=== PATIENT | female | born 1975 | race Caucasian/White ===

== ENCOUNTER 2020-11-27 05:44 | Day surgery (SDC) | payer OTHER ==
[2020-11-27] MEDS ORDERED: Nozin Nasal Sanitizer NASBOTH ONE (06:00)
[2020-11-27] MEDS ORDERED: Lactated Ringers 1,000 ML IV SCH (06:45)
[2020-11-27] MEDS ORDERED: Bupivacaine 0.5% 30 ML SDV ONE (06:59)
[2020-11-27] MEDS ORDERED: ceFAZolin 1 GM in Premix Bag 1 BAG IV ONE (07:00)
[2020-11-27] MEDS ORDERED: Scopolamine 1.5 MG Transdermal Patch ONE (07:20)
[2020-11-27] MEDS ORDERED: fentaNYL 100 MCG/2 ML SDV ONE ×3 (07:23→09:51)
[2020-11-27] MEDS ORDERED: Propofol 200 MG/20 ML SDV ONE (07:23)
[2020-11-27] MEDS ORDERED: Midazolam 1 MG/ML 2 ML SDV ONE (07:23)
[2020-11-27] MEDS ORDERED: Ondansetron 4 MG/2 ML SDV ONE (07:24)
[2020-11-27] MEDS ORDERED: Dexamethasone 4 MG/ML SDV ONE (07:24)
[2020-11-27] MEDS ORDERED: Naloxone 0.4 MG/ML SDV ONE (08:30)
[2020-11-27] MEDS ORDERED: Lactated Ringers 1,000 ML ONE (08:31)
[2020-11-27] MEDS ORDERED: Acetaminophen/HYDROcodone 325-5 MG Tab PO ONE (09:45)
[2020-11-27 10:17] VITALS: BP 98/55; PULSE 65
--- NOTE | 2020-12-02 10:19 | ANES ---
DATE OF SERVICE: 11/27/2020 ADDENDUM: I did give Mrs. Varela 2 mg of Versed upon arrival to the operating room, that was not documented in my chart. Bartolo Adam CRNA /[id number]
--- NOTE | 2020-12-04 22:26 | OR ---
DATE OF PROCEDURE: 11/27/2020 SURGEON: Danielito Garcia MD PREOPERATIVE DIAGNOSES: 1. Medial meniscus tear, right knee. 2. Chondromalacia, right knee. POSTOPERATIVE DIAGNOSES: 1. Minor tear of posterior root, medial meniscus, right knee. 2. Chondromalacia, patella and medial femoral condyle. PROCEDURES: 1. Arthroscopy, right knee, with minor debridement of medial meniscus posterior root. 2. Chondroplasty, patella and medial femoral condyle. [employer] CONSULTANT: MAGDA Willams ANESTHESIA: General. INDICATIONS: Sara is a 45-year-old female with a history of bilateral knee pain, right worse than left. Examination and imaging are consistent with a medial meniscus tear and some early changes of the articular cartilage. She has been limited in her activities and now presents for arthroscopic evaluation with partial meniscectomy versus repair and evaluation of articular cartilage. Risks, benefits, potential complications of the procedure were discussed. DESCRIPTION OF PROCEDURE: After adequate anesthesia was obtained, the patient was placed supine with a tourniquet about the right upper thigh. Right leg was prepped and draped in a sterile fashion. Leg was exsanguinated and tourniquet inflated to 300 mmHg pressure. Standard inferior, medial and lateral portals were established. The scope was introduced through the lateral portal and the patellofemoral joint was inspected. This revealed fraying and fibrillation of the dome of the patella, some grade 2 and some early grade 3 changes. Trochlear groove was intact. Sweeping into the medial compartment, grade 3 changes were noted over a significant portion of the weightbearing surface of the medial femoral condyle with some loose articular flaps. Evaluation of the meniscus visually and by palpation with a hook probe revealed a small degenerative type tear of the posterior horn leading into the posterior root. This was lightly debrided with a shaver. Further probing of the meniscus showed no evidence of any instability or other flap tear or cleavage tear. Chondroplasty was performed over the medial femoral condyle, removing all loose articular flaps and smoothing the edges. There were no areas of exposed subchondral bone, but several small linear areas which had minimal articular coverage. The intercondylar notch showed intact ACL and PCL. The lateral compartment showed intact meniscus and articular cartilage with no chondromalacia. Attention was returned to the patellofemoral joint where a shaver was used to perform a chondroplasty of the patella, removing all loose articular flaps. A small area of grade 2 and early grade 3 change was also noted more along the medial facet distally into the trochlea. This was lightly debrided as well. Patella tracking was observed which centered quite well and did not appear to catch on any of the areas of chondromalacia. All loose fragments were removed. The knee was drained. Scope was withdrawn. Port sites were closed in a standard fashion, infiltrated with Marcaine, and a sterile dressing was applied. The patient tolerated the procedure well. There were no complications. She was taken from the operating room in stable condition. Danielito Garcia MD /[id number]
== END 2020-11-27 10:51 | disposition home or self-care (01) ==
LOC: JP.SDS 05:44
PROVIDERS: ATTEND Specialist
DX: M23.321 Other meniscus derangements, posterior horn of medial meniscus, right knee (principal); M22.41 Chondromalacia patellae, right knee
CPT/HCPCS: 36415; 80053; 84703; 85027; A9270-GY; J0690; J1100; J2250; J2310; J2405; J2704; J3010; J3490; J7120

== ENCOUNTER 2023-03-20 15:12 | Emergency (ER) | payer OTHER ==
[2023-03-20 16:22] LABS: BASOPHILS ABSOLUTE AUTO 0.04 K/uL (0.00-0.10); BASOPHILS PERCENT AUTO 0.8 % (0.1-1.3); EOSINOPHILS ABSOLUTE AUTO 0.11 K/uL (0.00-0.40); EOSINOPHILS PERCENT AUTO 2.2 % (0.0-5.4); HEMATOCRIT 37.5 % (34.3-46.0); HEMOGLOBIN 12.5 g/dL (11.2-15.5); IMMATURE GRAN ABSOLUTE AUTO 0.01 K/uL (0.00-0.23); IMMATURE GRAN PERCENT AUTO 0.2 % (0.0-0.7); LYMPHOCYTES ABSOLUTE AUTO 1.94 K/uL (0.8-3.3); MEAN CORPUSCULAR HEMOGLOBIN 31.7 pg (31.6-35.5); MEAN CORPUSCULAR HGB CONC 33.3 g/dL (31.6-35.5); MEAN CORPUSCULAR VOLUME 95.2 fL (81.4-99.0); MONOCYTES ABSOLUTE AUTO 0.59 K/uL (0.20-0.90); MONOCYTES PERCENT AUTO 11.6 % (3.3-12.6); NEUTROPHILS ABSOLUTE AUTO 2.41 K/uL (1.0-7.6); NEUTROPHILS PERCENT AUTO 47.2 % (40.0-78.1); PLATELET COUNT,PLT 227 K/uL (130-375); RED BLOOD CELL COUNT 3.94 M/uL (3.77-5.24); WHITE BLOOD CELL COUNT,WBC 5.1 K/uL (3.2-11.0)
[2023-03-20 16:45] LABS: BLOOD UREA NITROGEN,BUN 15 mg/dL (7-18); CALCIUM 8.8 mg/dL (8.5-10.1); CARBON DIOXIDE,CO2 27 mmol/L (21-32); CHLORIDE,CL 105 mmol/L (100-108); ESTIMATED GFR 69 mL/min (>60); GLUCOSE RANDOM 89 mg/dL (74-106); POTASSIUM,K 3.8 mmol/L (3.6-5.2); SODIUM,NA 138 mmol/L (140-148); TROPONIN I HIGH SENSITIVITY 19.6 pg/mL (<=60.3)
[2023-03-20 16:46] LABS: ANION GAP 9.8 mmol/L (5.0-14.0)
[2023-03-20] MEDS ORDERED: Sodium Chloride 0.9% 50 ML IV ONE (17:46)
[2023-03-20] MEDS ORDERED: Sodium Chloride 0.9% 10 ML Syringe FLUSH ONE (17:46)
[2023-03-20] MEDS ORDERED: Iopamidol 755 Mg/ML 100 ML Bottle IV SCH (18:00)
[2023-03-20 18:55] VITALS: BP 96/60; PULSE 57
== END 2023-03-20 19:35 | disposition home or self-care (01) ==
LOC: JP.ED 15:12
DX: M94.0 Chondrocostal junction syndrome [Tietze] (principal); Z86.16 Personal history of COVID-19; Z87.891 Personal history of nicotine dependence
CPT/HCPCS: 36415; 71046; 71275; 80048; 84484; 85025; 85379; 93005; 99285; J3490; Q9967

== ENCOUNTER 2025-04-24 08:00 | Emergency (ER) | payer OTHER ==
[2025-04-24 08:13] VITALS: BP 100/62; PULSE 71
[2025-04-24] MEDS: Bacitracin Oint 1 GM U/D Packet TOP ONE (08:42)
== END 2025-04-24 08:43 | disposition home or self-care (01) ==
LOC: JP.ED 08:00
DX: L03.114 Cellulitis of left upper limb (principal); Z86.16 Personal history of COVID-19; Z79.899 Other long term (current) drug therapy
CPT/HCPCS: 99282